=== PATIENT | female | born 1980 | race Caucasian/White ===

== ENCOUNTER 2024-03-25 16:04 | Inpatient (IN) | payer OTHER, SELFPAY ==
[2024-03-25 16:11] VITALS: BP 113/71; PULSE 90; RESP 18; TEMP 36.6; O2SAT 100; BMI 18.2
--- NOTE | 2024-03-25 16:40 | ED_ITS ---
HPI - General Adult General Chief complaint: Unspecified Complaint, Adult Stated complaint: Suspected low O2, iron Time Seen by Provider: 03/25/24 16:05 History of Present Illness HPI narrative: This 43-year-old female comes in with her stating that she is having an aversion to food currently and feeling some lightheadedness. She reports multiple conditions occurring over the past years to where she states that she pretty much stays at home. 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 She states that she has not slept well for the past several days. She feels that her mouth is dry. She arrives here with normal vital signs. She refers to a prior infection of cytomegalovirus. She does not have any fevers or sign of infection currently. Related Data Home Medications ?Medication ?Instructions ?Recorded ?Confirmed No Known Home Medications 03/25/24 03/25/24 Allergies Allergy/AdvReac Type Severity Reaction Status Date / Time other so many due to mast Allergy Unknown Unknown Uncoded 03/25/24 16:40 cell Review of Systems Status of ROS: Reports: 10 or more systems reviewed and unremarkable except as noted in History and below Narrative: Constitutional: No fevers. Generalized malaise. Eyes: No discharge. No vision changes. HENT: No congestion, no sore throat, no ear pain. Cardiovascular: No chest pain, no palpitations. Respiratory: No shortness of breath, no wheezes, no cough. Gastrointestinal: No abdominal pain, no vomiting, no diarrhea. Genitourinary: No dysuria, no hematuria. Musculoskeletal: Normal range of motion. Skin: No rashes, no pruritis. Neurological: No dizziness, weakness, sensory change, speech change. Endo/Heme/Allergies: No bruising or bleeding. No polydipsia. Pysch: no suicidality, no anxiety, no insomnia. All other systems reviewed and are negative. Exam Narrative: Exam Narrative: Constitutional: No acute distress. HEENT: Normocephalic, atraumatic. Neck: Normal range of motion. Nontender. Supple. Heart: Regular. No murmurs. Normal rate. Intact distal pulses. Lungs: Clear to auscultation. No chest discomfort. No wheezes, rhonchi, or rales. Abdomen: Normal bowel sounds. Nontender. No rebound tenderness. Genitalia: Deferred. Back: No midline tenderness. Normal range of motion. Extremities: Normal range of motion. No injury. Skin: Intact. No rash. Warm. No erythema or pallor. Neurologic: No altered sensation. No weakness. Alert and oriented. Psychiatric: No suicidality. No anxiety or depression. No insomnia. Nursing notes and vitals signs are reviewed. Const: Vital Signs, click to edit/add: Vital Signs - 24 hr 03/25/24 16:11 Temperature 98 F Pulse Rate [Pulse Oximeter] 90 Respiratory Rate 18 Blood Pressure [Ri t Upper Arm] 113/71 Pulse Oximetry 100 Oxygen Delivery Me thod Room Air Course Vital Signs Vital signs: Initial Vital Signs Temperature 98 F 03/25/24 16:11 Temperature Source Temporal Artery Scan 03/25/24 16:11 Pulse Rate 90 03/25/24 16:11 Respiratory Rate 18 03/25/24 16:11 Blood Pressure 113/71 03/25/24 16:11 Blood Pressure Mean 85 03/25/24 16:11 Pulse Oximetry 100 03/25/24 16:11 Oxygen Delivery Method Room Air 03/25/24 16:11 Vital Signs Temperature 98 F 03/25/24 16:11 Pulse Rate 90 03/25/24 16:11 Respiratory Rate 18 03/25/24 16:11 Blood Pressure 113/71 03/25/24 16:11 Pulse Oximetry 100 03/25/24 16:11 Oxygen Delivery Method Room Air 03/25/24 16:11 Temperature 98 F 03/25/24 16:11 Pulse Rate 90 03/25/24 16:11 Respiratory Rate 18 03/25/24 16:11 Blood Pressure 113/71 03/25/24 16:11 Pulse Oximetry 100 03/25/24 16:11 Oxygen Delivery Method Room Air 03/25/24 16:11 Medications Administered Medications: Discontinued Medications Generic Name Dose Route Start Last Admin Trade Name Freq PRN Reason Stop Dose Admin Dextrose/Sodium Chloride 1,000 mls @ 1,000 mls/hr 03/25/24 16:37 03/25/24 18:05 5 % Dextrose/0.45% Sod Chlor IV 03/25/24 17:36 Infused .Q1H ONE Infusion Medical Decision Making MDM Narrative Medical decision making narrative: This patient comes in reporting generalized malaise and lightheadedness. She tells me after a revisited her that she has been having diarrhea for the past couple days and has been drinking lots of fluids trying to replenish the fluid loss. An IV was placed and labs are acquired. The patient did receive a L of D5 half normal saline and she states that this felt better and she would like more fluids. Lab results returned with elevated white count at around 18,000, hemoglobin at 8.6, and sodium at 122. The patient states that she has not had any significant blood loss but did have a extra heavy menses recently. She reports that her last hemoglobin was was about a year ago and if she remembers a right it was around 11. Given her low sodium I did contact the hospitalist on- call, Dr. Layton, who agrees to her admission. Lab Data Labs: Lab Results 03/25/24 03/25/24 Range/Units 16:30 16:45 WBC 18.25 H (4.50-11.00) K/uL RBC 4.05 (4.00-5.20) m/uL Hgb 8.6 L (12.0-16.0) gm/dL Hct 28.5 L (33.0-51.0) % MCV 70 L (80-100) fL MCH 21 L (26-34) pg MCHC 30 L (32-36) gm/dL RDW Coeff of Mamadou 17.5 H (11.5-15.5) % Plt Count 532 H (140-440) K/uL Neut % (Auto) 88.5 H (42.0-72.0) % Lymph % (Auto) 4.8 L (20-44) % [place] % (Auto) 6.1 (0.0-11.0) % Eos % (Auto) 0.1 (0.0-7.0) % Baso % (Auto) 0.3 (0.0-3.0) % Neut # (Auto) 16.20 H (1.7-7.0) K/uL Lymph # (Auto) 0.90 (0.90-2.90) K/uL [place] # (Auto) 1.10 H (0.00-0.90) K/UL Eos # (Auto) 0.00 (0.00-0.50) K/uL Baso # (Auto) 0.10 (0.00-0.30) K/uL Abs Immat Gran (auto) 0.00 (0.00-0.30) K/uL Imm/Tot Granulo (auto) 0.2 % Sodium 122 L* (135-149) mmol/L Potassium 3.4 L (3.6-5.1) mmol/L Chloride 95 L (96-114) mmol/L Carbon Dioxide 14 L (20-32) mmol/L Anion Gap 13 (7-15) mEq/L BUN 7 (5-24) mg/dL Creatinine 0.7 (0.5-1.5) mg/dL Estimated Creat Clear 89.96 Estimated GFR 111 ml/min Glucose 106 (60-115) mg/dL Calcium 9.0 (8.4-10.6) mg/dL Iron 44 (37-170) ug/dL TIBC 415 (265-497) ug/dL % Saturation 11 L (20-50) % C-Reactive Protein < 0.5 L (0.5-1.0) mg/dL Discharge Plan Discharge Clinical Impression: Acute hyponatremia, Fluid volume depletion, Anemia Patient Disposition: Admitted As Observation Condition: Unchanged Prescriptions: No Action No Known Home Medications Follow Up/Referrals: Provider,Not a Local [Primary Care Provider] -
[2024-03-25] MEDS: 5 % DEXTROSE/0.45% SOD CHLOR 1,000 ML 1000 ML IV (17:04)
[2024-03-25 17:08] LABS: Basophils Percent Auto 0.3 % (0.0-3.0); Eosinophils Percent Auto 0.1 % (0.0-7.0); Hematocrit 28.5 % (33.0-51.0); Hemoglobin* 8.6 gm/dL (12.0-16.0); Immature Granulocytes Pct Auto 0.2 %; Lymphocytes Percent Auto 4.8 % (20-44); Mean Corpuscular HGB Conc 30 gm/dL (32-36); Mean Corpuscular Hemoglobin 21 pg (26-34); Mean Corpuscular Volume 70 fL (80-100); Monocytes Percent Auto 6.1 % (0.0-11.0); Neutrophils Percent Auto 88.5 % (42.0-72.0); Platelet Count* 532 K/uL (140-440); RDW Coefficient of Variation % 17.5 % (11.5-15.5); Red Blood Count 4.05 m/uL (4.00-5.20); White Blood Count* 18.25 K/uL (4.50-11.00)
[2024-03-25 17:13] LABS: Slide Review Reflex No
[2024-03-25 17:54] LABS: Chloride* 95 mmol/L (96-114)
[2024-03-25 17:55] LABS: Potassium* 3.4 mmol/L (3.6-5.1)
[2024-03-25 17:57] LABS: Anion Gap 13 mEq/L (7-15); Carbon Dioxide* 14 mmol/L (20-32); Creatinine* 0.7 mg/dL (0.5-1.5); Est. Creatinine Clearance* 89.96; Estimated Glomerular Filt Rate 111 ml/min
[2024-03-25 17:58] LABS: Blood Urea Nitrogen* 7 mg/dL (5-24); Glucose* 106 mg/dL (60-115)
[2024-03-25 18:02] LABS: Sodium* 122 mmol/L (135-149)
[2024-03-25 18:03] LABS: C Reactive Protein* < 0.5 mg/dL (0.5-1.0)
[2024-03-25 18:10] LABS: Iron* 44 ug/dL (37-170)
[2024-03-25 18:19] LABS: Percent Iron Saturation 11 % (20-50); Total Iron Binding Capacity 415 ug/dL (265-497)
[2024-03-25 19:24] LABS: SARS PCR* Negative SARS-CoV-2 (Negative)
--- NOTE | 2024-03-25 19:32 | PM.IMHP1 ---
Hospitalist- H&P: HPI History of Present Illness Date Seen: 03/25/24 Chief complaint: Diarrhea and hyponatremia Narrative: Robyn Koehler is a 43 year old woman with a 24 hour history of watery diarrhea. Has had 15-20 such episodes over the last 24 hours. States she has consumed about 4 gal of water in effort to maintain her hydration. Denies change in her orthostasis, telling me she has POTS. Acknowledges dry mouth nevertheless. To the best of her knowledge does not ordinarily have hyponatremia. Does add salt to her diet liberally on a regular basis. Has had decrease sleep in consequence of her diarrhea. States she has history of mast cell activation syndrome, POTS, anemia with low ferritin, remote history of Lyme disease. About a month ago she tells me she received an infusion of a half dose of vitamin-D after which she became symptomatic with hypercalcemia. States she was tested for cytomegalovirus at that time and was told she was positive. Denies fevers, rigors, diaphoresis. Denies dysuria, urgency, frequency. Is actively menstruating right now. Obtains her medical support from a complementary Medicine Clinic. Tells me she sees Dr. Candice Medel. Review of Systems Status of ROS: Reports: 6 or more systems reviewed and unremarkable except as noted in History and below Meds Home Medications and Allergies Home Medications ?Medication ?Instructions ?Recorded ?Confirmed ?Type No Known Home Medications 03/25/24 03/25/24 History Home Medication Comments: Started the [place] herbal preparation in the last couple weeks. Allergies Allergy/AdvReac Type Severity Reaction Status Date / Time other so many due to mast Allergy Unknown Unknown Uncoded 03/25/24 16:40 cell Allergies/Adverse Reaction Comments: States she has had adverse reactions to numerous medications because of an underlying mast cell activation syndrome. Exam Narrative: Exam Narrative: I examine her in the emergency department. Appears comfortable, in no acute distress. Appears tired. Vision and hearing are normal. From the, articulate, cooperative. Alert and oriented x4. External auditory canals and tympanic membranes are normal. Midline nasal septum. Dry buccal mucosa. Dentition in good repair. No icterus. Conjugate gaze. Neck is supple. Midline trachea. Head and neck without any lymphadenopathy. Lungs entirely clear to auscultation without any wheezing, rhonchi, or rales. Heart tones with regular rhythm, normal S1-S2, without murmur, gallop, or rub. Extremities without edema. No focal motor neurologic deficits. Skin is warm, dry, intact. No petechiae, jaundice, cyanosis. Const: Vital Signs, click to edit/add: Vital Signs - 24 hr 03/25/24 16:11 Temperature 98 F Pulse Rate [Pulse Oximeter] 90 Respiratory Rate 18 Blood Pressure [Ri ght Upper Arm] 113/71 Pulse Oximetry 100 Oxygen Delivery Me thod Room Air Hospitalist - H&P: Result Labs Labs: Short CBC 03/25/24 Range/Units 16:45 WBC 18.25 H (4.50-11.00) K/uL Hgb 8.6 L (12.0-16.0) gm/dL Hct 28.5 L (33.0-51.0) % Plt Count 532 H (140-440) K/uL BMP 03/25/24 16:45 Sodium 122 L* Potassium 3.4 L Chloride 95 L Carbon Dioxide 14 L BUN 7 Creatinine 0.7 Glucose 106 Calcium 9.0 Assessment and Plan Assessment and plan (1) Acute diarrhea: Problem comment: -etiology not yet determined -volume and frequency have decreased significantly over the last 6 hours -no obvious blood -IV fluids, monitor electrolytes, advance diet as tolerated Status: Acute (2) Acute hyponatremia: Problem comment: -sodium 122 -likely due to acute diarrhea with efforts to hydrate by consume large volumes of water -2 L fluid restriction, normal saline, monitor sodium Status: Acute (3) Fluid volume depletion: Problem comment: -monitor orthostatic blood pressures and pulses Status: Acute (4) Anemia: Problem comment: -appears to be a chronic problem and recommended she have further follow-up in the outpatient setting with her primary disabilities caregiver Status: Acute Plan 1. I reviewed my impression, recommendations, and plans with the patient and her . 2. Answered their questions to their satisfaction. 3. Acknowledge her multiple adverse reactions to various foods and medications. She and her will bring in her own food. Will hold off on given her many medications other than focusing on helping her sodium stabilize and improve slowly. 4. Patient and are agreeable with above stated plans and recommendations Total Time Spent Total Time Spent: 50 minutes
[2024-03-25 19:56] VITALS: BP 117/69; PULSE 82; RESP 18; TEMP 36.4; O2SAT 100; BMI 17.2
[2024-03-25 20:16] VITALS: RESP 18; O2SAT 100
[2024-03-25 20:22] VITALS: BP 112/70; BP 112/89; PULSE 80; PULSE 99
[2024-03-25 20:44] LABS: Magnesium* 1.9 mg/dL (1.5-2.6)
[2024-03-25] MEDS: 0.9 % SODIUM CHLORIDE 1000 ml 1,000 ML 75 ML IV (20:44)
[2024-03-25 20:47] LABS: Sodium* 122 mmol/L (135-149)
[2024-03-25] MEDS: SODIUM CHLORIDE 0.9 % (FLUSH) 10 ML SYRINGE 5 ML IVF (20:47)
[2024-03-25 22:47] VITALS: BP 108/70; PULSE 83; RESP 18; TEMP 36.6; O2SAT 100
[2024-03-26 03:00] VITALS: BP 99/64; PULSE 79; RESP 18; TEMP 36.6; O2SAT 100
--- NOTE | 2024-03-26 05:41 | PC.NURSE ---
Shift note: Pt arrived at the unit at 1954 on a wheelchair accompanied by . She endorsed having diarrhea and feeling weak recently started 2 days ago. She had 2 small BM tonight. Patient uses bedpan in bed. She reported not able to stand upright. Therefore, orthostatic Bp (standing) could not be done. Patient reports having several allergies and have many questions with the medications. She questioned the prescribed potassium asking for other items and preservatives used for the medication. She said that there is a particular potassium capsule she takes and her children will send it to her this morning. She has been in bed throughout the night. Vitally stable.
[2024-03-26 07:28] LABS: Hematocrit 26.3 % (33.0-51.0); Immature Reticulocyte Fraction 31.5 % (3.0-15.9); Mean Corpuscular HGB Conc 30 gm/dL (32-36); Mean Corpuscular Hemoglobin 21 pg (26-34); Mean Corpuscular Volume 72 fL (80-100); Platelet Count* 474 K/uL (140-440); Red Blood Count 3.64 m/uL (4.00-5.20); Reticulocyte Hemoglobin Equivi 24.4 pg (29.0-35.0); Reticulocyte Percent 3.2 % (0.5-2.0); Reticulocytes Absolute 0.12 # (0.03-0.08); White Blood Count* 9.98 K/uL (4.50-11.00)
[2024-03-26 07:30] VITALS: BP 101/62; PULSE 77; RESP 18; TEMP 36.7; O2SAT 100
[2024-03-26 07:37] LABS: Chloride* 109 mmol/L (96-114); Potassium* 3.8 mmol/L (3.6-5.1); Sodium* 136 mmol/L (135-149)
[2024-03-26 07:40] LABS: Anion Gap 10 mEq/L (7-15); Blood Urea Nitrogen* 5 mg/dL (5-24); Carbon Dioxide* 17 mmol/L (20-32); Creatinine* 0.7 mg/dL (0.5-1.5); Est. Creatinine Clearance* 84.15; Estimated Glomerular Filt Rate 111 ml/min; Glucose* 82 mg/dL (60-115); Slide Review Reflex Yes
[2024-03-26 07:41] LABS: Calcium* 8.5 mg/dL (8.4-10.6); Hemoglobin* 7.8 gm/dL (12.0-16.0); Magnesium* 2.3 mg/dL (1.5-2.6)
[2024-03-26 08:12] LABS: Slide Review Acceptable Review (Acceptable)
[2024-03-26 08:28] LABS: Ferritin* 9.7 ng/mL (6.24-137.0)
[2024-03-26 09:05] LABS: C Reactive Protein* < 0.5 mg/dL (0.5-1.0)
[2024-03-26 10:21] LABS: Sodium* 133 mmol/L (135-149)
[2024-03-26 11:05] VITALS: BP 107/68; PULSE 88; RESP 18; TEMP 36.8; O2SAT 100
--- NOTE | 2024-03-26 12:14 | P.DS_ITS ---
DS: Providers Provider Date Seen: 03/26/24 Date of admission: 03/25/24 20:22 Primary care physician: Not a Local Provider Admitting Clinician: Ramírez Layton MD Attending Physician on discharge: Jude Thompson MD Date of Discharge: 03/26/24 DS: Diagnosis Discharge Diagnosis (1) Acute hyponatremia: Status: Acute Problem details: Patient presented with gastrointestinal illness and a sodium of 122. This was thought to be an acute process happening in the last 3 days of diarrhea and poor oral solute ingestion. She corrected very quickly in the hospital receiving maintenance normal saline. D5W given to slow down the correction. She has returned to eating a normal diet (2) Fluid volume depletion: Status: Acute Problem details: On presentation patient appeared volume depleted. She had a metabolic acidosis and hyponatremia. Much improved overnight. (3) Iron deficiency anemia: Status: Acute Problem details: Apparently longstanding problem. She is currently menstruating. Has poorly tolerated iron supplements in the past but is willing to try again. (4) Acute diarrhea: Status: Acute Problem details: Marked improvement overnight. DS: Summary Hospital Course Hospital Course: Robyn Koehler is a 43 year old woman with a 24 hour history of watery diarrhea. Has had 15-20 such episodes over the last 24 hours. States she has consumed about 4 gal of water in effort to maintain her hydration. Denies change in her orthostasis, telling me she has POTS. Acknowledges dry mouth nevertheless. To the best of her knowledge does not ordinarily have hyponatremia. Does add salt to her diet liberally on a regular basis. Has had decrease sleep in consequence of her diarrhea. States she has history of mast cell activation syndrome, POTS, anemia with low ferritin, remote history of Lyme disease. About a month ago she tells me she received an infusion of a half dose of vitamin-D after which she became symptomatic with hypercalcemia. States she was tested for cytomegalovirus at that time and was told she was positive. Denies fevers, rigors, diaphoresis. Denies dysuria, urgency, frequency. Is actively menstruating right now. Obtains her medical support from a complementary Medicine Clinic. Tells me she sees Dr. Candice Medel. 03/26/2024: Overnight patient reports feeling much better. She is tolerating p.o. food and fluids. Diarrhea is better. Her sodium has corrected too quickly. She received D5W to slow the correction rate. She is anxious to go home. She has a longstanding history of iron deficiency and has apparently poorly tolerated some iron supplements in the past. She agrees to try oral liquid ferrous sulfate to see if this will correct her iron deficiency anemia. She will follow-up with her primary care doctor for recheck of her CBC and iron studies. Time Spent with Patient Time attestation: Total time spent providing and/or coordinating discharge services: 45 minutes Time spent: Greater than 30 minutes Exam Narrative: Exam Narrative: She is alert appears in no distress. She is oriented to her circumstances. She is seen with her today. Breathing is unlabored. Const: Vital Signs, click to edit/add: Vital Signs - 24 hr 03/25/24 16:11 03/25/24 19:56 03/25/24 20:16 Temperature 98 F 97.6 F Pulse Rate [Pulse Oximeter] 90 Pulse Rate [Right Pulse Oximeter] 82 Pulse Rate [orthos tatic lying Right Pulse Oximeter] Pulse Rate [orthos tatic sitting Righ t Pulse Oximeter] Respiratory Rate 18 18 18 Blood Pressure [Ri ght Arm] 117/69 Blood Pressure [Ri ght Upper Arm] 113/71 Blood Pressure [or thostatic lying Ri ght Arm] Blood Pressure [or thostatic sitting Right Arm] Pulse Oximetry 100 100 100 Oxygen Delivery Me thod Room Air Room Air Room Air 03/25/24 20:22 03/25/24 22:47 03/25/24 22:47 Temperature 98 F Pulse Rate [Pulse Oximeter] Pulse Rate [Right Pulse Oximeter] 83 83 Pulse Rate [orthos tatic lying Right Pulse Oximeter] 80 Pulse Rate [orthos tatic sitting Righ t Pulse Oximeter] 99 Respiratory Rate 18 18 Blood Pressure [Ri ght Arm] 108/70 Blood Pressure [Ri ght Upper Arm] Blood Pressure [or thostatic lying Ri ght Arm] 112/70 Blood Pressure [or thostatic sitting Right Arm] 112/89 Pulse Oximetry 100 Oxygen Delivery Me thod Room Air 03/26/24 03:00 03/26/24 07:30 03/26/24 07:30 Temperature 98 F 98.1 F Pulse Rate [Pulse Oximeter] Pulse Rate [Right Pulse Oximeter] 79 77 77 Pulse Rate [orthos tatic lying Right Pulse Oximeter] Pulse Rate [orthos tatic sitting Righ t Pulse Oximeter] Respiratory Rate 18 18 18 Blood Pressure [Ri ght Arm] 99/64 101/62 Blood Pressure [Ri ght Upper Arm] Blood Pressure [or thostatic lying Ri ght Arm] Blood Pressure [or thostatic sitting Right Arm] Pulse Oximetry 100 100 Oxygen Delivery Me thod Room Air Room Air 03/26/24 11:05 Temperature 98.2 F Pulse Rate [Pulse Oximeter] Pulse Rate [Right Pulse Oximeter] 88 Pulse Rate [orthos tatic lying Right Pulse Oximeter] Pulse Rate [orthos tatic sitting Righ t Pulse Oximeter] Respiratory Rate 18 Blood Pressure [Ri ght Arm] 107/68 Blood Pressure [Ri ght Upper Arm] Blood Pressure [or thostatic lying Ri ght Arm] Blood Pressure [or thostatic sitting Right Arm] Pulse Oximetry 100 Oxygen Delivery Me thod Room Air Documenting provider has reviewed patient's vital signs: yes DS: Data Data Completed and Pending Labs on day of discharge: Labs from last 24 hours 03/26/24 03/26/24 03/25/24 10:02 06:19 20:22 WBC 9.98 RBC 3.64 L Hgb 7.8 L* Hct 26.3 L MCV 72 L MCH 21 L MCHC 30 L RDW Coeff of Mamadou Plt Count 474 H Neut % (Auto) Lymph % (Auto) [place] % (Auto) Eos % (Auto) Baso % (Auto) Neut # (Auto) Lymph # (Auto) [place] # (Auto) Eos # (Auto) Baso # (Auto) Abs Immat Gran (auto) Imm/Tot Granulo (auto) Diff Slide Review Acceptable Review Absolute Retic 0.12 H Percent Retic 3.2 H Immature Retic Fraction 31.5 H Retic Hgb Equivalent 24.4 L Sodium 133 L 136 Potassium 3.8 Chloride 109 Carbon Dioxide 17 L Anion Gap 10 BUN 5 Creatinine 0.7 Estimated Creat Clear 84.15 Estimated GFR 111 Glucose 82 Calcium 8.5 Magnesium 2.3 Iron TIBC % Saturation Ferritin 9.7 C-Reactive Protein < 0.5 L SARS-CoV-2 (PCR) Lab Acknowledgement Test Added 03/25/24 03/25/24 03/25/24 18:35 16:45 16:30 WBC 18.25 H RBC 4.05 Hgb 8.6 L Hct 28.5 L MCV 70 L MCH 21 L MCHC 30 L RDW Coeff of Mamadou 17.5 H Plt Count 532 H Neut % (Auto) 88.5 H Lymph % (Auto) 4.8 L [place] % (Auto) 6.1 Eos % (Auto) 0.1 Baso % (Auto) 0.3 Neut # (Auto) 16.20 H Lymph # (Auto) 0.90 [place] # (Auto) 1.10 H Eos # (Auto) 0.00 Baso # (Auto) 0.10 Abs Immat Gran (auto) 0.00 Imm/Tot Granulo (auto) 0.2 Diff Slide Review Absolute Retic Percent Retic Immature Retic Fraction Retic Hgb Equivalent Sodium 122 L* 122 L* Potassium 3.4 L Chloride 95 L Carbon Dioxide 14 L Anion Gap 13 BUN 7 Creatinine 0.7 Estimated Creat Clear 89.96 Estimated GFR 111 Glucose 106 Calcium 9.0 Magnesium 1.9 Iron 44 TIBC 415 % Saturation 11 L Ferritin C-Reactive Protein < 0.5 L SARS-CoV-2 (PCR) Negative SARS-CoV-2 Lab Acknowledgement Discharge Plan Discharge Disposition: Home, Self-Care Date of Admission: 03/25/24 20:22 Attending Provider on Discharge: Reginald Thompson Primary Care Provider: Provider,Not a Local Condition: Improved Anticipated Discharge Date/Time: 03/26/24 12:08 Discharge Medications: New ferrous sulfate 300 mg (60 mg iron)/5 mL liquid 300 mg PO DAILY Qty: 120 2RF Discharge Orders: Discharge Order (Routine); Ordered 03/26/24 Ordered By: Reginald Thompson Patient Education: Iron Supplements (By mouth), Hyponatremia (DC) Additional Instructions: You had low serum sodium concentration likely due to feeling ill causing you to not eat but still drinking water. If you become ill again and are unable to take in food containing protein and salt you are at risk for having this happen again. If this happens see your doctor or go to the emergency room. Follow-up with your primary care provider to recheck your iron deficiency anemia in the next month. Activity Level: No Restrictions Discharge Diet: Regular Follow Up Appointments: Provider,Not a Local [Primary Care Provider] - Forms: Lift Info Instructions
--- NOTE | 2024-03-26 14:17 | PC.NURSE ---
Discharge: Patient pleasant and cooperative, A&O. VSS, afebrile. SpO2 maintained above 90% on RA. Tolerating regular pureed diet. IV removed with tip intact. Discharge instructions provided, all questions answered. Discharged to home with .
== END 2024-03-26 13:43 | disposition home or self-care (01) | DRG 641 ==
LOC: ED 19:34 → MEDSURG 19:42
PROVIDERS: Family Medicine; Admitting Provider Internal Medicine; Emergency Provider Emergency Medicine Emergency Medical Services; Visit Provider Internal Medicine
DX: E87.1 Hypo-osmolality and hyponatremia (principal); Z68.1 Body mass index [BMI] 19.9 or less, adult; R19.7 Diarrhea, unspecified; E86.9 Volume depletion, unspecified; E63.9 Nutritional deficiency, unspecified; E87.20 Acidosis, unspecified; D50.9 Iron deficiency anemia, unspecified; R63.6 Underweight; F50.82 Avoidant/restrictive food intake disorder; Z86.19 Personal history of other infectious and parasitic diseases; D89.40 Mast cell activation, unspecified; G90.A Postural orthostatic tachycardia syndrome [POTS]
CPT/HCPCS: 36415; 80048; 82728; 83540; 83550; 83735; 84295; 85025; 85027; 85045; 86140; 87635; 99284; 99285; J7030; J7070; S5010